=== PATIENT | male | born 1980 | race Caucasian/White ===

== ENCOUNTER → 2016-08-01 | Outpatient (CLI) | payer MEDICARE, OTHER ==
--- NOTE | ~2016-08-01 | US6 ---
[facility] A Service of [facility] / [facility] RADIOLOGY TEXT RESULTS PATIENT: ANISHA MOREL [facility] 76 UNIT #: [id number] AGE: [address]: Cheo Donnelly MD SEX: M ORDER DR: [id number] [place] [id number] O MR#: [id number] Acc #: [id number] NAME: ANISHA MOREL : 1980 SEX: M STUDY DATE/TIME: 08/01/2016 9:12 UNIT: SGUS ROOM: STUDY DESCRIPTION: US Abdominal Limited Attending Physician: Cheo Donnelly M.D. Referring Physician: Cheo Donnelly M.D. Ordering Physician: Cheo Donnelly M.D. Primary Care Physician: Jalil Osman M.D. MEDICAL IMAGING REPORT This report is preliminary unless electronic signature is present. EXAM Right upper quadrant ultrasound, 08/01/2016. HISTORY Followup nonalcoholic steatohepatitis, diabetes. FINDINGS The liver demonstrates a somewhat coarsened echotexture but no cystic or solid mass lesions were seen in the liver. The intra and extrahepatic bile ducts are not dilated. The gallbladder is normal with no evidence of cholelithiasis, wall thickening, or pericholecystic fluid. The common duct measures 3 mm. The pancreas is poorly visualized due to overlying bowel gas. The right kidney is normal. IMPRESSION 1. Somewhat coarsened liver echotexture. No cystic or solid mass lesions were seen within the liver. 2. Normal gallbladder. 3. Poor visualization of the pancreas due to overlying bowel gas. Dictated by... Henry Bright M.D. THIS IS AN ELECTRONICALLY VERIFIED REPORT Henry Bright M.D. at 08/02/2016 4:31 PM COOKIE/lawanda TD: 08/01/2016 12:00 JOB #: [id number] [facility] A Service of [facility] / [facility] RADIOLOGY TEXT RESULTS PATIENT: ANISHA MOREL LOCATION: [facility] #: [id number] : [birth year] UNIT #: [id number] AGE: [address]: Cheo Donnelly MD SEX: M ORDER DR: MEDICAL IMAGING REPORT Page 1 of 1
== END | disposition home or self-care (01) ==
LOC: SGUS 08:23
DX: K75.81 Nonalcoholic steatohepatitis (NASH) (principal)
CPT/HCPCS: 76705